=== PATIENT | male | born 1985 | race Caucasian/White ===

== ENCOUNTER 2017-10-24 22:55 | Emergency (ER) | payer BC, SELFPAY ==
[2017-10-24 22:57] VITALS: BP 121/93; PULSE 100; RESP 19; TEMP 36.7; O2SAT 96; BMI 28.3
--- NOTE | 2017-10-24 23:02 | RAD_ITS ---
STUDY: X-RAY - RIGHT FOOT CLINICAL: Male, 32 years old. C/O RT GREAT TOE PAIN X 2 DAYS TECHNIQUE: 3 view(s) of the foot. COMPARISON: None. FINDINGS: Normal talus, calcaneus, and tarsal bones. Normal visualized subtalar, talonavicular, calcaneocuboid, tarsal and tarsometatarsal articulations. Normal metatarsi. Normal metatarsophalangeal joint of the great toe. Normal tibial and fibular sesamoid bones. Normal interphalangeal joint of the great toe. Normal phalanges of the great toe. Normal second through fifth metatarsophalangeal joints. Normal interphalangeal joints and phalanges of the lesser toes. The soft tissue structures are unremarkable. RAD/Foot min 3 Views IMPRESSION: Normal x-ray examination of the foot. Electronically Signed: Luci Loja MD at 23:28 EST Tel , Service support ,
--- NOTE | 2017-10-24 23:28 | ED.VISSUMM ---
- ER Visit Summary Date of Service: 10/24/17 Chief Complaint: Right great toe pain History of Present Illness: The patient is a 32 M who sees Daniel Rosa. He reports he has pain in his right first metatarsal joint that began yesterday. Pain is 10 out of 10 with touching it or walking. Is 8 out of 10 after ibuprofen, Tylenol, and rest. He denies having had similar symptoms previously. Physical Examination: Vitals: Stable. Afebrile. General: Well-nourished and well-developed. Head: Normocephalic atraumatic. Neck: Supple, no lymphadenopathy. No JVD. Nontender. Cardiovascular: Regular rate and rhythm. No murmurs. Respiratory: No respiratory distress. Clear to auscultation bilaterally. Abdominal: Soft, nontender, nondistended, normal bowel sounds. No guarding, rebound, or peritoneal signs. Back: Nontender. Extremities: Erythema, warmth, and severe tenderness palpation over the first MTP joint. Skin: Normal color, no rash. Neurologic: Alert and oriented ?3. Cranial nerves II through XII are intact. Normal strength and sensation. Psych: Normal affect. Test Results: X-ray is consistent with mild changes of gout. Emergency Department Course and Treatment: An [facility] report was obtained which was negative. He was treated with prednisone and [place] here. Treatment Plan: Patient will be discharged on prednisone and [place]. He refused colchicine. Instructed to follow-up with Daniel Rosa in 1 week if not improving. Disposition: To home in improved and stable condition. Impression: 1. Gout right first MTP joint. This note was generated with [employer] dictation software. It may contain incorrect words, spelling, and punctuation that were not noted in review of the chart prior to signing ED Disposition - Plan for ED Patient: Chief Complaint: Lower Extremity Injury Instructions: ED Arthritis Gout Prescriptions: Hydrocodone Bitart/Apap 5-325 [[place] 5/325] 1 - 2 tablet PO Q4H PRN PRN 5 Days #20 tablet PRN Reason: Pain Prednisone 10 mg PO DAILY #63 tablet Referrals: Ministerio Jimenez [Primary Care Provider] - 1 Week if not improving
--- NOTE | 2017-10-24 23:31 | ED.DCSUM_ITS ---
- ER Visit Summary Date of Service: 10/24/17 Chief Complaint: Right great toe pain History of Present Illness: The patient is a 32 M who sees Daniel Rosa. He reports he has pain in his right first metatarsal joint that began yesterday. Pain is 10 out of 10 with touching it or walking. Is 8 out of 10 after ibuprofen, Tylenol, and rest. He denies having had similar symptoms previously. Physical Examination: Vitals: Stable. Afebrile. General: Well-nourished and well-developed. Head: Normocephalic atraumatic. Neck: Supple, no lymphadenopathy. No JVD. Nontender. Cardiovascular: Regular rate and rhythm. No murmurs. Respiratory: No respiratory distress. Clear to auscultation bilaterally. Abdominal: Soft, nontender, nondistended, normal bowel sounds. No guarding, rebound, or peritoneal signs. Back: Nontender. Extremities: Erythema, warmth, and severe tenderness palpation over the first MTP joint. Skin: Normal color, no rash. Neurologic: Alert and oriented ?3. Cranial nerves II through XII are intact. Normal strength and sensation. Psych: Normal affect. Test Results: X-ray is consistent with mild changes of gout. Emergency Department Course and Treatment: An [facility] report was obtained which was negative. He was treated with prednisone and [place] here. Treatment Plan: Patient will be discharged on prednisone and [place]. He refused colchicine. Instructed to follow-up with Daniel Rosa in 1 week if not improving. Disposition: To home in improved and stable condition. Impression: 1. Gout right first MTP joint. This note was generated with [employer] dictation software. It may contain incorrect words, spelling, and punctuation that were not noted in review of the chart prior to signing ED Disposition - Plan for ED Patient: Chief Complaint: Lower Extremity Injury Instructions: ED Arthritis Gout Prescriptions: Hydrocodone Bitart/Apap 5-325 [[place] 5/325] 1 - 2 tablet PO Q4H PRN PRN 5 Days # 20 tablet PRN Reason: Pain Prednisone 10 mg PO DAILY #63 tablet Referrals: Ministerio Jimenez [Primary Care Provider] - 1 Week if not improving
[2017-10-24] MEDS: HYDROcodone Bitartrate/Apap 5/325 Tablet PO (23:55)
== END 2017-10-25 00:04 | disposition home or self-care (01) ==
LOC: ED 23:36
PROVIDERS: Emergency Provider Emergency Medicine; Family Provider Nurse Practitioner Family; PCP Nurse Practitioner Family
DX: M10.9 Gout, unspecified (principal)
CPT/HCPCS: 73630; 99282